=== PATIENT | male | born 1950 | race Caucasian/White ===

== ENCOUNTER 2018-04-05 11:19 | Emergency (ER) | payer OTHER ==
[~2018-04-05] VITALS: Ht 170.2 cm; Wt 83.0 kg
[~2018-04-05 11:19] MED LIST: ALLO100T PO; AMLO5TAB22 PO; CALC0.25 PO; DEPA500T3 PO; HYDR-3533 PO; PAXI20TA26 PO; PRED20 PO; RISP0.5T2 PO; TACR1 PO
[2018-04-05 11:46] VITALS: BP 124/65; PULSE 110; RESP 18; TEMP 98.7; O2SAT 96
[2018-04-05 12:35] VITALS: BP 160/98; PULSE 92; RESP 20; O2SAT 96
[2018-04-05] MEDS ORDERED: TACR1CAP PO (12:35)
[2018-04-05] MEDS ORDERED: ALLO100T PO (12:35)
[2018-04-05] MEDS ORDERED: DIVA500T3 PO (12:35)
[2018-04-05] MEDS ORDERED: PANT40TA3 PO (12:35)
[2018-04-05] MEDS ORDERED: RISP0.252 PO (12:35)
[2018-04-05] MEDS ORDERED: ESCI20TA PO (12:35)
[2018-04-05] MEDS ORDERED: LEVO100T5 PO (12:35)
[2018-04-05] MEDS ORDERED: SODIUM CHLORID 0.9% 500 ML INJ 500 ML IV ONE (13:00)
--- NOTE | 2018-04-05 13:10 | PD ---
HPI Chief Complaint: Flank/Kidney Pain Time Seen by Provider: 12:52 Travel History International Travel<30 days: No Contact w/Intl Traveler<30days: No Traveled to known affect area: No History of Present Illness HPI 67 y/o male states he has been having left lower quadrant abdominal pain for the past month. His states that he had an MRI 2 weeks ago that showed 1 of his prior transplant kidneys had a cyst that was pushing on his organs. They got evaluated by a surgeon for possible removal but she was not happy with the care given at [facility] prior given he had a fall and dislocated his hip and one of his prior biopsies she states was done on the wrong side. The patient has also not been getting out of bed much and the is concerned about this. The patient denies any fever or other concurrent complaints but the supplements most of the history. PFSH Past Medical History Arthritis: Yes (RA) Bipolar Disorder: Yes Cancer: Yes (melanoma, basal cell carcinoma) Cardiovascular Problems: Yes (HTN) Renal Failure: Yes Past Surgical History Other Surgery: Yes (bilateral kidney transplant, 2 parathyroid glands removed) Social History Alcohol Use: No Tobacco Use: No Substance Use: No Allergies-Medications (Allergen,Severity, Reaction): Coded Allergies: aspirin (Unverified Allergy, Unknown, 04/05/18) Reported Meds & Prescriptions Reported Meds & Active Scripts Active Reported Risperidone 0.25 Mg Tab 0.25 Mg PO DAILY Allopurinol 100 Mg Tab 100 Mg PO DAILY Tacrolimus 1 Mg Cap 1 Mg PO DAILY Levothyroxine (Levothyroxine Sodium) 100 Mcg Tab 100 Mcg PO DAILY Escitalopram (Escitalopram Oxalate) 20 Mg Tab 20 Mg PO DAILY Pantoprazole (Pantoprazole Sodium) 40 Mg Tab 40 Mg PO DAILY Divalproex ER (Divalproex Sodium) 500 Mg Tab 500 Mg PO BID Review of Systems Except as stated in HPI: all other systems reviewed are Neg Physical Exam Narrative GENERAL: 67-year-old male in no apparent distress SKIN: Focused skin assessment warm/dry. HEAD: Atraumatic. Normocephalic. EYES: Pupils equal and round. No injection or drainage. ENT: No nasal bleeding or discharge. Mucous membranes pink and moist. NECK: Trachea midline. No JVD. CARDIOVASCULAR: Regular rate and rhythm. RESPIRATORY: No accessory muscle use. Clear to auscultation. Breath sounds equal bilaterally. GASTROINTESTINAL: Abdomen soft, tender left lower quadrant, nondistended. No rebound or guarding MUSCULOSKELETAL: No obvious deformities. No clubbing. No cyanosis. NEUROLOGICAL: Awake and alert. Moves all extremities. Normal speech. Data Data Last Documented VS Vital Signs Date Time Temp Pulse Resp B/P (MAP) Pulse Ox O2 Delivery O2 Flow Rate FiO2 04/05/18 15:39 85 20 177/100 (125) 94 Room Air 04/05/18 11:46 98.7 Orders Orders Complete Blood Count With Diff (04/05/18 12:24) Comprehensive Metabolic Panel (04/05/18 12:24) Urinalysis - C+S If Indicated (04/05/18 12:24) Lipase (04/05/18 12:24) Iv Access Insert/Monitor (04/05/18 12:24) Ct Abd/Pel W/O Iv Contrast (04/05/18 ) Sodium Chlorid 0.9% 500 Ml Inj (Ns 500 M (04/05/18 13:00) Sodium Chlor 0.9% 1000 Ml Inj (Ns 1000 M (04/05/18 15:15) Acetaminophen (Tylenol) (04/05/18 15:30) Ed Discharge Order (04/05/18 15:55) Labs Laboratory Tests Test 04/05/18 12:50 04/05/18 14:27 White Blood Count 13.2 TH/MM3 Red Blood Count 4.31 MIL/MM3 Hemoglobin 12.4 GM/DL Hematocrit 38.2 % Mean Corpuscular Volume 88.6 FL Mean Corpuscular Hemoglobin 28.7 PG Mean Corpuscular Hemoglobin Concent 32.4 % Red Cell Distribution Width 15.2 % Platelet Count 203 TH/MM3 Mean Platelet Volume 7.8 FL Neutrophils (%) (Auto) 83.6 % Lymphocytes (%) (Auto) 5.9 % Monocytes (%) (Auto) 10.3 % Eosinophils (%) (Auto) 0.0 % Basophils (%) (Auto) 0.2 % Neutrophils # (Auto) 11.0 TH/MM3 Lymphocytes # (Auto) 0.8 TH/MM3 Monocytes # (Auto) 1.4 TH/MM3 Eosinophils # (Auto) 0.0 TH/MM3 Basophils # (Auto) 0.0 TH/MM3 CBC Comment DIFF FINAL Differential Comment Blood Urea Nitrogen 22 MG/DL Creatinine 2.25 MG/DL Random Glucose 112 MG/DL Total Protein 7.8 GM/DL Albumin 2.1 GM/DL Calcium Level 8.5 MG/DL Alkaline Phosphatase 139 U/L Aspartate Amino Transf (AST/SGOT) 16 U/L Alanine Aminotransferase (ALT/SGPT) 9 U/L Total Bilirubin 0.9 MG/DL Sodium Level 133 MEQ/L Potassium Level 4.3 MEQ/L Chloride Level 103 MEQ/L Carbon Dioxide Level 20.9 MEQ/L Anion Gap 9 MEQ/L Estimat Glomerular Filtration Rate 29 ML/MIN Lipase 107 U/L Urine Color YELLOW Urine Turbidity CLEAR Urine pH 6.0 Urine Specific [place] 1.009 Urine Protein TRACE mg/dL Urine Glucose (UA) NEG mg/dL Urine Ketones NEG mg/dL Urine Occult Blood NEG Urine Nitrite NEG Urine Bilirubin NEG Urine Urobilinogen LESS THAN 2.0 MG/DL Urine Leukocyte Esterase NEG Urine WBC 1 /hpf Microscopic Urinalysis Comment CULT NOT INDICATED MDM Medical Decision Making Medical Screen Exam Complete: Yes Emergency Medical Condition: Yes Medical Record Reviewed: Yes (Past history confirmed) Interpretation(s) CBC & BMP Diagram 04/05/18 12:50 Total Protein 7.8, Albumin 2.1 L, Calcium Level 8.5, Alkaline Phosphatase 139 H , Aspartate Amino Transf (AST/SGOT) 16, Alanine Aminotransferase (ALT/SGPT) 9 L , Total Bilirubin 0.9 Last 24 hours Impressions Abdomen/Pelvis CT 04/05/18 0000 Signed Impressions: CONCLUSION: 1. No acute finding is identified to explain the left lower quadrant pain. 2. Severe atherosclerotic disease with rim calcified 3.6 cm structure in the r ight pelvis abutting the external iliac vessels. 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 3. There is hydronephrosis of the right lower quadrant renal transplant. The l eft pelvis renal transplant demonstrates severe cortical thinning and augustine ki dneys are atrophic bilaterally. 4. Cholelithiasis. Differential Diagnosis UTI, stone, musculoskeletal, transplant failure Narrative Course We will check blood work, urinalysis, CT scan abdominal pelvis and reevaluate CT scan without emergent process. Records from [facility] shows stable renal function. Will discuss with his section hand. Patient denies any new complaints and states that they are feeling better. Patient happy with care, all questions answered. Patient knows that follow up is incumbent on them and to return to the emergency room immediately if new or worsening symptoms develop. Patient given strict return precautions, vitals reviewed and are normal, agrees to further workup as an outpatient. Physician Communication Physician Communication dr jones states at baseline and can follow with his primary, reviewed labs, CT and current history and physical Diagnosis Primary Impression: Abdominal pain Patient Instructions: General Instructions Additional Instructions: return as needed, tylenol as needed, follow with primary tommorrow Med/Other Pt SpecificInfo: No Change to Meds Disposition: 01 DISCHARGE HOME Condition: Stable Arielle Miles MD April 05, 2018 13:10
[2018-04-05 13:15] LABS: BASOPHIL % 0.2 % (0.0-2.0); HEMATOCRIT 38.2 % (39.0-51.0); HEMOGLOBIN 12.4 GM/DL (13.0-17.0); LYMPH % 5.9 % (9.0-44.0); LYMPHOCYTE # 0.8 TH/MM3 (1.0-4.8); MEAN CELL VOLUME 88.6 FL (80.0-100.0); MEAN CORPUSCULAR HEMOGLOBIN 28.7 PG (27.0-34.0); MEAN CORPUSCULAR HGB CONC 32.4 % (32.0-36.0); MEAN PLATELET VOLUME 7.8 FL (7.0-11.0); MONO % 10.3 % (0.0-8.0); MONOCYTE # 1.4 TH/MM3 (0-0.9); NEUT % 83.6 % (16.0-70.0); PLATELET COUNT 203 TH/MM3 (150-450); RED BLOOD COUNT 4.31 MIL/MM3 (4.50-5.90); RED CELL DISTRIBUTION WIDTH 15.2 % (11.6-17.2); WHITE BLOOD COUNT 13.2 TH/MM3 (4.0-11.0)
[2018-04-05 13:29] LABS: ALBUMIN 2.1 GM/DL (3.4-5.0); AST (GOT) 16 U/L (15-37); BICARBONATE 20.9 MEQ/L (21.0-32.0); BLOOD UREA NITROGEN 22 MG/DL (7-18); CALCIUM 8.5 MG/DL (8.5-10.1); CHLORIDE 103 MEQ/L (98-107); CREATININE 2.25 MG/DL (0.60-1.30); GLOMERULAR FILTRATION RATE 29 ML/MIN (>89); GLUCOSE,RANDOM 112 MG/DL (74-106); SODIUM (NA) 133 MEQ/L (136-145)
[2018-04-05 13:30] LABS: ALT (GPT) 9 U/L (12-78)
[2018-04-05 13:32] LABS: ALKALINE PHOSPHATASE 139 U/L (45-117); TOTAL BILIRUBIN ADULT 0.9 MG/DL (0.2-1.0); TOTAL PROTEIN 7.8 GM/DL (6.4-8.2)
--- NOTE | 2018-04-05 14:41 | RADRPT ---
EXAM DATE: 04/05/2018 1:53 PM EDT AGE/SEX: 67 years / Male INDICATIONS: Left lower quadrant pain. CLINICAL DATA: This is the patient's initial encounter. Patient reports that signs and symptoms have been present for 1 month and indicates a pain score of 6/10. MEDICAL/SURGICAL HISTORY: Hypertension. Renal insufficiency. Renal transplant. RADIATION DOSE: 8.50 CTDI (mGy) COMPARISON: No prior [place] exams available for comparison. TECHNIQUE: Multiple contiguous axial images were obtained through the abdomen. Images were obtained using multiple row detector helical technique. Using dose reduction techniques, radiation dose was ke pt as low as reasonably achievable to obtain optimal diagnostic quality images. FINDINGS: Lower chest: There are small bilateral pleural effusions which are partially visualized. Hepatobiliary: Liver density is normal on this noncontrast examination. In the left lobe there is a 1 0 mm low-density lesion with density measurements consistent with a cyst. A small calcified stones ar e present in the gallbladder. No gallbladder wall thickening is present. Kidneys: The [place] kidneys demonstrate atrophy with calcifications bilaterally. No hydronephrosis is present within the [place] kidneys. There is a right lower quadrant renal transplant which demonstrat es hydronephrosis without mass or stone. A left lower quadrant renal transplant demonstrates severe c ortical thinning with dilated collecting system. Adrenal Glands: Within normal limits. Spleen: Spleen is enlarged measuring approximately 14.7 cm in length. Pancreas: No acute abnormality is seen on this noncontrast examination. Vascular: There is severe atherosclerotic disease of the aorta and its major branches. Rim calcified ovoid structure in the right pelvis abutting the external iliac vessels measures 3.6 x 3.2 cm. Bowel/Mesentery: The stomach and small bowel demonstrate no abnormality. No acute colon abnormality i s seen. There is no free intraperitoneal air or fluid. A small hiatal hernia is present. Abdominal Wall: No hernia is visualized. Retroperitoneum: No lymphadenopathy. Bladder: Not well visualized secondary to artifact. However, no definite abnormality is seen. Reproductive: Not well seen secondary to artifact. Inguinal: No lymphadenopathy or hernia. Musculoskeletal: No acute osseous abnormality is identified. There are degenerative changes of the aman mbar spine. Bilateral hip arthroplasty hardware is present and causes beam hardening artifact and par tial obscuration of the pelvic structures. CONCLUSION: 1. No acute finding is identified to explain the left lower quadrant pain. 2. Severe atherosclerotic disease with rim calcified 3.6 cm structure in the right pelvis abutting t he external iliac vessels. This probably represents either an external iliac artery aneurysm or aneur ysm of the transplant renal artery. 3. There is hydronephrosis of the right lower quadrant renal transplant. The left pelvis renal trans plant demonstrates severe cortical thinning and [place] kidneys are atrophic bilaterally. 4. Cholelithiasis. Electronically signed by: Cedrick Landeros MD 04/05/2018 2:40 PM EDT
[2018-04-05 15:01] LABS: BILIRUBIN, URINE NEG (NEG); BLOOD, URINE NEG (NEG); GLUCOSE,URINE NEG (NEG); KETONE, URINE NEG (NEG); NITRITE,URINE NEG (NEG); URINE COLOR YELLOW (YELLW/STRAW); URINE LEUKOCYTE ESTERASE NEG (NEG)
[2018-04-05] MEDS ORDERED: SODIUM CHLOR 0.9% 1000 ML INJ 1,000 ML IV ONE (15:15)
[2018-04-05] MEDS ORDERED: ACETAMINOPHEN 325 MG TAB PO ONE (15:30)
[2018-04-05 15:39] VITALS: BP 177/100; PULSE 85; RESP 20; O2SAT 94
== END 2018-04-05 16:24 | disposition home or self-care (01) ==
LOC: NEPE 11:19
DX: R10.32 Left lower quadrant pain (principal)
CPT/HCPCS: 74176; 80053; 81001; 83690; 85025; 96360; 99284; J7030; J7040